=== PATIENT | female | born 1955 | race Caucasian/White ===

== ENCOUNTER → 2017-03-13 | Outpatient (CLI) | payer BC ==
--- NOTE | 2017-03-13 15:48 | US ---
HISTORY: Right breast lump Bilateral digital diagnostic mammography with CAD and bilateral breast ultrasound. Comparison: None FINDINGS: Mammogram: Bilateral CC and MLO projections of the right and left breast were obtained. Scattered f ibroglandular tissue is seen to be present. Within the right breast in the region of the palpable f indings, there is a superficial smoothly marginated and well circumscribed 1.9 cm hyperdense nodule most likely reflecting a sebaceous cyst but which will be correlated with ultrasound. A peripheral r im of hyperlucency is noted also suggesting benignity. There are regions of focal asymmetry with int ervening foci of lucency in the upper-outer quadrant left breast at mid depth and subareolar left br east favored to represent benign asymmetrical fibroglandular parenchyma but which will be correlated with ultrasound to exclude an underlying suspicious occult lesion. No skin thickening or nipple re traction is appreciated. No pathological lymphadenopathy can be identified. Benign-appearing calci fications are noted within the right and left breast. Ultrasound: Multiple grayscale and color Doppler images of both breasts were obtained in the regions of interest. At 3 o'clock approximately 7 cm from the nipple on the right, there is a superficial h orizontally oriented smoothly marginated and well circumscribed heterogeneous cyst mixed echogenicit y hypoechoic nodule measuring 1.9 cm with cystic components located just beneath the skin surface mo st compatible with a benign sebaceous cyst. There is posterior acoustical enhancement with regions o f peripheral Doppler flow. Clinical correlation with any signs and symptoms of superimposed infectio n is recommended. Dense fibrocystic changes are noted throughout the upper outer quadrant left breas t and within the subareolar left breast. No suspicious cystic or solid nodules are seen to warrant b iopsy. IMPRESSION: NO RADIOGRAPHIC EVIDENCE OF MALIGNANCY. Sebaceous cyst right breast in the region of in terest for which clinical correlation and follow up are recommended. ACR CATEGORY 2 - benign findings. FOLLOW-UP EXAM 1 YEAR. Diagnostic CAD was utilized and reviewed. * 0 (ZERO) - ASSESSMENT INCOMPLETE; ADDITIONAL IMAGING IS NEEDED. * 1/ (ONE) - NEGATIVE. * 2/II (TWO) - BENIGN FINDINGS. * 3/III (THREE) - PROBABLY BENIGN FINDING; SHORT INTERVAL FOLLOW-UP SUGGESTED. * 4/IV (FOUR) - SUSPICIOUS ABNORMALITY; BIOPSY SHOULD BE CONSIDERED. * 5/V (FIVE) - HIGHLY SUSPICIOUS OF MALIGNANCY; BIOPSY SHOULD BE PERFORMED. A NEGATIVE X-RAY REPORT SHOULD NOT DELAY BIOPSY IF A DOMINANT OR CLINICALLY SUSPICIOUS MASS IS PRESENT; 4 TO 8 PERCENT OF CANCERS ARE NOT IDENTIFIED BY X-RAY. A NEG ATIVE REPORT MAY REINFORCE THE CLINICAL IMPRESSION. ADENOSIS AND DENSE BREASTS MAY OBSCURE AN UNDER LYING NEOPLASM. Reported By:
== END ==
LOC: RAD 13:40
PROVIDERS: ATTEND Specialist
DX: N63 Unspecified lump in breast (principal)
CPT/HCPCS: 76642; 77066